=== PATIENT | male | born 2000 | race American Indian/Alaskan Native ===

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

== ENCOUNTER 2019-05-15 13:15 | Emergency (ER) | payer SELFPAY ==
[2019-05-15 13:21] VITALS: BP 136/90
--- NOTE | 2019-05-15 13:26 | Event Note ---
ED Screening Note Date of service: 05/15/19 Time: 13:25 ED Screening Note: 18 y o male presents with bee sting x 2 days ago redness and pain to right arm This initial assessment/diagnostic orders/clinical plan/treatment(s) is/are subject to change based on patients health status, clinical progression and re- assessment by fellow clinical providers in the ED. Further treatment and workup at subsequent clinical providers discretion. Patient/guardian urged not to elope from the ED as their condition may be serious if not clinically assessed and managed. Initial orders include:
[2019-05-15] MEDS ORDERED: XYLOCAINE 1% MPF 5 mL INFILTRATI ONE (14:52)
[2019-05-15] MEDS ORDERED: ULTRAM PO ONE (14:59)
--- NOTE | 2019-05-15 14:59 | Emergency Department Report ---
Abscess Boil HPI - HPI Chief Complaint: Skin/Abscess/Foreign Body Stated Complaint: BOIL ON BACK/PAIN Time Seen by Provider: 05/15/19 13:25 Duration: >1 Week (2 weeks) Location: Perianal Severity: Severe History: Yes Pain, No Fever, No Purulent Drainage, No Numbness, No Foreign Body, No Previous History, No Insect Bite HPI: This is a 18-year-old -[place] male who presents to the emergency room with an abscess to perianal region. No significant past medical history. He denies every having an abscess. Patient states pain is worse with sitting and currently 10/10 on pain scale. He denies fever or drainage. Home Medications: Previous Rx's Medication Instructions Recorded Last Taken Type Ibuprofen [Motrin] 600 mg PO Q8H PRN #30 tablet 04/06/17 Unknown Rx traMADol [Ultram 50 MG tab] 50 mg PO Q6HR PRN #20 tablet 04/06/17 Unknown Rx Ibuprofen [Motrin 800 MG tab] 800 mg PO Q8HR PRN #20 tablet 05/15/19 Unknown Rx Sulfamethoxazole/Trimethoprim 1 each PO BID #14 tablet 05/15/19 Unknown Rx [Bactrim DS TAB] Allergies/Adverse Reactions: Allergies Allergy/AdvReac Type Severity Reaction Status Date / Time No Known Allergies Allergy Verified 04/05/17 22:04 ED Review of Systems ROS: Stated complaint: BOIL ON BACK/PAIN Other details as noted in HPI Constitutional: denies: chills, fever Respiratory: denies: cough, shortness of breath, wheezing Cardiovascular: denies: chest pain, palpitations Gastrointestinal: denies: abdominal pain, nausea, diarrhea Skin: lesions (abscess of perianal region). denies: rash Neurological: denies: headache, weakness, paresthesias Psychiatric: denies: anxiety, depression ED Past Medical Hx - Past Medical History Previous Medical History?: No - Surgical History Past Surgical History?: Yes Additional Surgical History: septorhinoplasty - Social History Smoking Status: Current Every Day Smoker Substance Use Type: Alcohol - Medications Home Medications: Home Medications Medication Instructions Recorded Confirmed Last Taken Type Ibuprofen [Motrin] 600 mg PO Q8H PRN #30 tablet 04/06/17 Unknown Rx traMADol [Ultram 50 MG tab] 50 mg PO Q6HR PRN #20 tablet 04/06/17 Unknown Rx Ibuprofen [Motrin 800 MG tab] 800 mg PO Q8HR PRN #20 tablet 05/15/19 Unknown Rx Sulfamethoxazole/Trimethoprim 1 each PO BID #14 tablet 05/15/19 Unknown Rx [Bactrim DS TAB] ED Abscess Boil Physical Exam - Exam General: Vital signs noted. No distress. Alert and acting appropriately. Front/Back of Body, Lg (Color): 1 - 1 cm non-fluctuant erythematous nodule to perianal, tenderness, no discharge or surrounding cellulitis. Size: 1 cm Exam: Yes Tenderness, Yes Normal Neurologic Exam, Yes Normal Circulation, No Fluctuance, No Surrounding Cellulites/Erythema, No Lymphangitis, No Crepitation, No Heart Murmur ED Course Vital Signs 05/15/19 13:17 Temperature 98.3 F Pulse Rate 108 H Respiratory 18 Rate Blood Pressure 136/90 O2 Sat by Pulse 100 Oximetry Critical care attestation.: If time is entered above; I have spent that time in minutes in the direct care of this critically ill patient, excluding procedure time. ED Medical Decision Making - Medical Decision Making This is a 18 y.o. male that presents with a painful abscess to perianal area for 2 weeks. No history of prior abscess. Patient is stable and examined by me. No acute signs of distress noted. Given tramadol 50 mg po once in ER. I&D not indicated at this time. Discussed plan to start bactrim DS and ibuprofen with patient. Educated patient and spouse on follow up plan to have wound reassessed in 3-5 days by a PCP. Patient agrees to ED plan of care. Discharged home and follow up with PCP in 3-5 days. ED Disposition Clinical Impression: Abscess, perianal Disposition: DC-01 TO HOME OR SELFCARE Is pt being admited?: No Does the pt Need Aspirin: No Condition: Stable Instructions: Abscess (ED) Additional Instructions: Complete full round of bactrim DS antibiotic as prescribed. Follow up with primary care doctor in 3-5 days. Apply warm compresses or bath soaks to aid in drainage. Return to ER if foul smelling discharge, swelling, or severe pain to wound. Prescriptions: Sulfamethoxazole/Trimethoprim [Bactrim DS TAB] 1 each PO BID #14 tablet Ibuprofen [Motrin 800 MG tab] 800 mg PO Q8HR PRN #20 tablet PRN Reason: Pain , Severe (7-10) Referrals: PRIMARY CARE,MD [Primary Care Provider] - 3-[address] [facility] [Outside] - 3-5 Days [facility] [Outside] - 3-5 Days [facility] [Outside] - 3-5 Days Time of Disposition: 15:35
== END 2019-05-15 15:44 | disposition home or self-care (01) ==
LOC: ED 13:15
DX: L02.215 Cutaneous abscess of perineum (principal); F17.200 Nicotine dependence, unspecified, uncomplicated; Z79.899 Other long term (current) drug therapy; Z79.1 Long term (current) use of non-steroidal anti-inflammatories (NSAID)
CPT/HCPCS: 99282